=== PATIENT | male | born 1965 | race African-American/Black ===

== ENCOUNTER 2017-07-10 13:58 | Emergency (ER) | payer SELFPAY ==
[2017-07-10] MEDS ORDERED: LIDOCAINE WITH 8.4% SOD BICARB 3 ML DISP.SYRIN. IJ (14:45)
[2017-07-10] MEDS: DIPHTH,PERTUSS(ACELL),TET TOX 0.5 ML DISP.SYRIN. VAX IM (15:15)
== END 2017-07-10 15:20 | disposition home or self-care (01) ==
LOC: ER 13:58
DX: S01.112A Laceration without foreign body of left eyelid and periocular area, initial encounter (principal); W22.8XXA Striking against or struck by other objects, initial encounter; Y93.89 Activity, other specified; Y99.8 Other external cause status; Y92.89 Other specified places as the place of occurrence of the external cause
CPT/HCPCS: 12011; 90471; 90715; 99283-25

== ENCOUNTER 2019-03-20 14:03 | Emergency (ER) | payer SELFPAY ==
[~2019-03-20] VITALS: Ht 170.2 cm; Wt 70.3 kg
[2019-03-20 14:21] VITALS: BP 139/90
[2019-03-20] MEDS ORDERED: LIDOCAINE WITH 8.4% SOD BICARB 3 ML DISP.SYRIN. INJ ONE (15:30)
--- NOTE | 2019-03-20 16:17 | PHYS DOC ---
Past Medical History Past Medical History: No Pertinent History Past Surgical History: No Surgical History Alcohol Use: None Drug Use: None Adult General Chief Complaint Chief Complaint: LACERATION/AVULSION HPI HPI Patient is a 53 year old male who presents with right kidd laceration, patient states large panel light bulb broke and cut him. Tetanus up-to-date. Review of Systems Review of Systems Constitutional: Denies fever or chills [] Musculoskeletal: Denies back pain or joint pain [] Integument: Reports right kidd laceration Neurologic: Denies headache, focal weakness or sensory changes [] All other systems were reviewed and found to be within normal limits, except as documented in this note. Current Medications Current Medications Current Medications Medications (Trade) Dose Ordered Sig/Eros Start Time Stop Time Status Last Admin Dose Admin Lidocaine/Sodium Bicarbonate (Buffered Lidocaine 1%) 6 ml 1X ONCE 03/20/19 15:30 03/20/19 15:31 DC 03/20/19 15:43 6 ML Allergies Allergies Allergies Coded Allergies Type Severity Reaction Last Updated Verified No Known Drug Allergies 07/10/17 No Physical Exam Physical Exam Constitutional: Well developed, well nourished, no acute distress, non-toxic appearance. [] Skin: Warm, dry, right kidd with a horizontal laceration approximately 8 cm long. There is no obvious tendon involvement. Full range of motion to the right lower extremity. +2 right pedal pulse. Cap refill less than 2 seconds to the right lower extremity. Back: No tenderness, no CVA tenderness. [] Extremities: No tenderness, no cyanosis, no clubbing, ROM intact, no edema. [] Neurologic: Alert and oriented X 3, normal motor function, normal sensory function, no focal deficits noted. [] Psychologic: Affect normal, judgement normal, mood normal. [] Current Patient Data Vital Signs Vital Signs Date Time Temp Pulse Resp B/P (MAP) Pulse Ox O2 Delivery O2 Flow Rate FiO2 03/20/19 14:21 98.3 90 16 139/90 (106) 97 Room Air 98.3 EKG EKG [] Radiology/Procedures Radiology/Procedures Laceration/Wound Repair Wound Location: Right kidd Wound's Depth, Shape: Horizontal Wound Length (cm): Approximately 8 cm Wound Explored: clean Irrigated w/ Saline (ccs): 500 Betadine Prep?: Yes Anesthesia: 1% buffered lidocaine Volume Anesthetic (ccs): 6 mL Wound Repaired With: 3.0 and 4. 0 Vicryl Suture Size/Type: Internal laceration was closed with 2 interrupted sutures, external laceration was closed with 15 interrupted sutures Progress wound was covered with nonstick dressing Course & Med Decision Making Course & Med Decision Making Pertinent Labs and Imaging studies reviewed. (See chart for details) This is a 53-year-old male patient who presents to the ED today with right kidd laceration that was closed by me as noted in procedures. Tetanus up-to-date. Wound care instructions and return precautions provided Dragon Disclaimer Dragon Disclaimer This electronic medical record was generated, in whole or in part, using a voice recognition dictation system. Departure Departure Impression: Primary Impression: Laceration of right lower extremity Disposition: 01 HOME, SELF-CARE Condition: STABLE Referrals: NO PCP (PCP) follow up with your doctor as needed Patient Instructions: Laceration Care, Adult, [id number] Additional Instructions: You have a laceration on the right kidd that was closed with dissolvable stitche s, they will fall of on their own. Keep the area clean and dry. You can shower and wash the area once or twice a day. Do not soak or scrub the area. Apply Neosporin to the area twice a day. Monitor the area for any signs of infection including but not limited to increased redness, warmth, yellow drainage from the area and return to the ED if they occur. Problem Qualifiers Primary Impression: Laceration of right lower extremity Encounter type: initial encounter Qualified Codes: S81.811A - Laceration without foreign body, right lower leg, initial encounter MYKEL MICHELE APRN Mar 20, 2019 16:17
== END 2019-03-20 16:25 | disposition home or self-care (01) ==
LOC: ER 14:03
DX: S81.811A Laceration without foreign body, right lower leg, initial encounter (principal); W25.XXXA Contact with sharp glass, initial encounter; Y93.89 Activity, other specified; Y92.89 Other specified places as the place of occurrence of the external cause; Y99.8 Other external cause status
CPT/HCPCS: 12004; 99283